=== PATIENT | male | born 1940 | race Caucasian/White ===

== ENCOUNTER 2016-12-25 07:28 | Day surgery (SDC) | payer MEDICARE, OTHER ==
[~2016-12-25 07:28] MED LIST: Lactated Ringers 1,000 ML IV SCH; Lidocaine 1%/Sod Bicarbonate in NS 8.4% 1 ML Syringe PRN; Propofol 200 MG/20 ML SDV ONE; Sodium Chloride 0.9% 10 ML Syringe FLUSH PRN
--- NOTE | 2016-12-25 07:55 | PCM.PREANE ---
Preanesthetic Assessment - Anesthesia/Transfusion/Family Hx Anesthesia History: Prior Anesthesia Without Reaction Family History of Anesthesia Reaction: No - Review of Systems General: No Symptoms Pulmonary: No Symptoms Cardiovascular: No Symptoms Gastrointestinal: No symptoms Neurological: No Symptoms Other: Reports: None - Physical Assessment NPO Status Date: 12/24/16 NPO Status Time: 20:00 Pulse: 55 O2 Sat by Pulse Oximetry: 96 Respiratory Rate: 16 Blood Pressure: 144/55 Temperature: 96.4 C ASA Class: 3 Mental Status: Alert & Oriented x3 Airway Class: Mallampati = 1 Dentition: Reports: Normal Dentition, Missing Tooth/Teeth ROM/Head Extension: Full Lungs: Clear to auscultation, Normal respiratory effort Cardiovascular: Murmurs - Allergies Allergies/Adverse Reactions: Allergies Allergy/AdvReac Type Severity Reaction Status Date / Time No Known Allergies Allergy Verified 12/24/16 15:51 - Acknowledgements Anesthesia Type Planned: MAC Pt an Appropriate Candidate for the Planned Anesthesia: Yes Alternatives and Risks of Anesthesia Discussed w Pt/Guardian: Yes Pt/Guardian Understands and Agrees with Anesthesia Plan: Yes PreAnesthesia Questionnaire HEENT History: Reports: Allergic Rhinitis, Impaired Vision, Other (See Below) Other HEENT History: reading glasses Cardiovascular History: Reports: Heart Murmur, Other (See Below) Other Cardiovascular History: cardiac arrythmia Respiratory History: Reports: COPD, Other (See Below) Other Respiratory History: lung nodules, acute URI, thick sputum Gastrointestinal History: Reports: Chronic Diarrhea, Diverticulosis Genitourinary History: Reports: BPH 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 Musculoskeletal History: Reports: Other (See Below) Other Musculoskeletal History: R knee pain, great toe pain Neurological History: Reports: Vertigo, Other (See Below) Other Neuro History: benign paroxysmal postitional vertigo Psychiatric History: Reports: None Endocrine/Metabolic History: Reports: None Hematologic History: Reports: Other (See Below) Other Hematologic History: hypocalcemia Immunologic History: Reports: None Oncologic (Cancer) History: Reports: None Dermatologic History: Reports: Other (See Below) Other Dermatologic History: prurigo nodularis, skin disorder - Past Surgical History Head Surgeries/Procedures: Reports: None HEENT Surgical History: Reports: Tonsillectomy Cardiovascular Surgical History: Reports: None Respiratory Surgical History: Reports: None GI Surgical History: Reports: Colonoscopy Female Surgical History: Reports: None Male Surgical History: Reports: None, Vasectomy Endocrine Surgical History: Reports: None Neurological Surgical History: Reports: None Musculoskeletal Surgical History: Reports: None Oncologic Surgical History: Reports: None Dermatological Surgical History: Reports: None - Past Imaging History Past Imaging History: Reports: Xray (CXR/CT scan-stable) - SUBSTANCE USE Smoking Status *Q: Former Smoker Number of Drinks Per Day: 3 Recreational Drug Use History: No - HOME MEDS Home Medications: Home Meds Aspirin 81 mg PO DAILY 12/24/16 [History] Multivitamin [Men's Multi-Vitamin] 1 tab PO DAILY 12/24/16 [History] Tiotropium [Spiriva Handihaler] 1 puff INH DAILY 12/24/16 [History] Triamcinolone Acetonide [Triamcinolone Acetonide 0.1% Crm] 1 dose TOP ASDIRECTED PRN 12/24/16 [History] - CURRENT (IN HOUSE) MEDS Current Meds: Current Medications Lactated Ringer's (Ringers, Lactated) 1,000 mls @ 125 mls/hr IV ASDIRECTED LES Stop: 12/25/16 23:00 Lidocaine/Sodium Bicarbonate (Buffered Lidocaine 1% In Ns 8.4%) 0.25 ml .XX ONETIME PRN PRN Reason: Prior to IV Start Stop: 12/25/16 18:00 Sodium Chloride (Saline Flush) 10 ml FLUSH ASDIRECTED PRN PRN Reason: Keep Vein Open Stop: 12/25/16 18:00 Discontinued Medications Propofol (Diprivan 20 Ml) Confirm Administered Dose 200 mg .ROUTE .STK-MED ONE Stop: 12/25/16 07:28
--- NOTE | 2016-12-25 09:04 | PCM.OPNOTE ---
- General Post-Op/Procedure Note Date of Surgery/Procedure: 12/25/16 Operative Procedure(s): Colonoscopy with rectal polypectomy using cold forceps Findings: 1. Pancolonic diverticulosis of the right colon transverse descending and sigmoid colons moderate to large in diameter 2. Diminutive rectal polyp less than 5 mm in size 3. Poor bowel prep Pre Op Diagnosis: Screening colonoscopy Post-Op Diagnosis: 1. Pancolonic diverticulosis. 2. Diminutive rectal polyp Anesthesia Technique: MAC, Moderate sedation Primary Surgeon: Antolin Baig Pathology: Rectal polyp EBL in mLs: 0 Complications: None Condition: Good Free Text/Narrative:: After adequate IV sedation and analgesia was obtained with monitoring the patient was placed on his left side. Perianal inspection and digital rectal examination were performed and were unremarkable. A lubricated colonoscope was inserted into the rectum and advanced to the cecum without difficulty. The bowel preparation was poor. The cecum, right colon, transverse and descending colons all contained moderate to large sized diverticuli. Some contained fecaliths. The sigmoid had the largest diverticuli with some containing fecaliths as well. There were no obvious mass lesion seen but limited by the poor bowel preparation. The musculature in the sigmoid was hypertrophied. Within the rectum there was a diminutive polyp about 5 mm in diameter which was removed with cold forceps. The specimen was retrieved and the area was hemostatic. Air was removed as I finished the procedure which he tolerated well. Motion Picture Equipment Supervisor photographs taken for the patient for the record.
--- NOTE | 2016-12-25 09:06 | PCM48HPAN ---
Post Anesthesia Note - EVALUATION WITHIN 48HRS OF ANESTHETIC Vital Signs in Normal Range: Yes Patient Participated in Evaluation: Yes Respiratory Function Stable: Yes Airway Patent: Yes Cardiovascular Function Stable: Yes Hydration Status Stable: Yes Pain Control Satisfactory: Yes Nausea and Vomiting Control Satisfactory: Yes Mental Status Recovered: Yes
[2016-12-25 09:08] VITALS: BP 140/69
== END 2016-12-25 09:34 | disposition home or self-care (01) ==
LOC: JD.SDS 07:28
PROVIDERS: ATTEND Surgery
PROC: 0DBP8ZX Excision of Rectum, Via Natural or Artificial Opening Endoscopic, Diagnostic (ICD-10-PCS; principal; 2016-12-25)
DX: Z12.11 Encounter for screening for malignant neoplasm of colon (principal); K62.1 Rectal polyp; K57.30 Diverticulosis of large intestine without perforation or abscess without bleeding; K59.39 Other megacolon; N40.0 Benign prostatic hyperplasia without lower urinary tract symptoms; J44.9 Chronic obstructive pulmonary disease, unspecified; E83.51 Hypocalcemia; L28.1 Prurigo nodularis; Z79.82 Long term (current) use of aspirin; Z79.899 Other long term (current) drug therapy; Z86.79 Personal history of other diseases of the circulatory system; Z87.01 Personal history of pneumonia (recurrent); Z98.52 Vasectomy status; Z90.49 Acquired absence of other specified parts of digestive tract; Z87.891 Personal history of nicotine dependence
CPT/HCPCS: 45380; 88305; J7120; 00810; J2704

== ENCOUNTER 2018-12-15 17:54 | Emergency (ER) | payer MEDICARE, OTHER ==
[2018-12-15 18:03] VITALS: BP 188/80
--- NOTE | 2018-12-15 18:31 | EDM.PDOC ---
ED HPI GENERAL MEDICAL PROBLEM - General Chief Complaint: ENT Problem Stated Complaint: FB IN EYE Time Seen by Provider: 12/15/18 18:10 Source of Information: Reports: Patient History Limitations: Reports: No Limitations - History of Present Illness INITIAL COMMENTS - FREE TEXT/NARRATIVE: 78-year-old male presents to the ED after having been identified foreign body in his right cornea partially removed at the [facility]. Denise Davis recognized that there was still residual foreign body/rust ring on the cornea. For this reason he was sent to the ED for further evaluation and treatment. He has been started on both ketorolac eyedrops and Cipro up thalamic drops with the initial drops placed prior to coming to the ED. Onset: Today Onset Date: 12/15/18 (He was grinding metal this morning even with a protective eyewear in place.) Duration: Hour(s): Location: Reports: Face (Right foreign body sensation in his eye.) Quality: Reports: Ache, Burning, Other Severity: Moderate (Excessive tearing) Improves with: Reports: Medication ( topical proparacaine removed the pain completely) Worsens with: Reports: None Context: Reports: Other (Grinding metal this morning). 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: Other (see below) (He has had a dose of Cipro ophthalmic drops and ketorolac ophthalmic drops placed in his eye.) - Related Data Allergies Allergy/AdvReac Type Severity Reaction Status Date / Time No Known Allergies Allergy Verified 12/15/18 18:03 Home Meds: Home Meds Aspirin 81 mg PO DAILY 12/24/16 [History] Multivitamin [Men's Multi-Vitamin] 1 tab PO DAILY 12/24/16 [History] Tiotropium [Spiriva Handihaler] 1 puff INH DAILY 12/24/16 [History] Triamcinolone Acetonide [Triamcinolone Acetonide 0.1% Crm] 1 dose TOP ASDIRECTED PRN 12/24/16 [History] Past Medical History HEENT History: Reports: Allergic Rhinitis, Impaired Vision, Other (See Below) Other HEENT History: reading glasses Cardiovascular History: Reports: Heart Murmur, Hypertension, Other (See Below) Other Cardiovascular History: cardiac arrythmia Respiratory History: Reports: COPD, Other (See Below) Other Respiratory History: lung nodules, acute URI, thick sputum Gastrointestinal History: Reports: Chronic Diarrhea, Diverticulosis Genitourinary History: Reports: BPH 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 Musculoskeletal History: Reports: Other (See Below) Other Musculoskeletal History: R knee pain, great toe pain Neurological History: Reports: Vertigo, Other (See Below) Other Neuro History: benign paroxysmal postitional vertigo Psychiatric History: Reports: None Endocrine/Metabolic History: Reports: None Hematologic History: Reports: Other (See Below) Other Hematologic History: hypocalcemia Immunologic History: Reports: None Oncologic (Cancer) History: Reports: None Dermatologic History: Reports: Other (See Below) Other Dermatologic History: prurigo nodularis, skin disorder - Infectious Disease History Infectious Disease History: Reports: None - Past Surgical History Head Surgeries/Procedures: Reports: None HEENT Surgical History: Reports: Detached Retina, Tonsillectomy Cardiovascular Surgical History: Reports: None Respiratory Surgical History: Reports: None GI Surgical History: Reports: Colonoscopy Male Surgical History: Reports: Vasectomy Endocrine Surgical History: Reports: None Neurological Surgical History: Reports: None Musculoskeletal Surgical History: Reports: None Oncologic Surgical History: Reports: None Dermatological Surgical History: Reports: None - Past Imaging History Past Imaging History: Reports: Xray (CXR/CT scan-stable) Social & Family History - Tobacco Use Smoking Status *Q: Never Smoker - Caffeine Use Caffeine Use: Reports: None - Recreational Drug Use Recreational Drug Use: No - Living Situation & Occupation Living situation: Reports: Occupation: Retired ED ROS GENERAL - Review of Systems Review Of Systems: See Below Constitutional: Reports: No Symptoms HEENT: Reports: Eye Pain (Foreign body sensation right eye), Glasses ( is like you're slipping up underneath his eyelid) Respiratory: Reports: No Symptoms, Shortness of Breath, Wheezing (Periodically. Has known COPD.), Cough Cardiovascular: Reports: No Symptoms (Usually nonproductive) Endocrine: Reports: No Symptoms GI/Abdominal: Reports: No Symptoms : Reports: Frequency, Other (Nocturia 2. Known BPH) Musculoskeletal: Reports: Joint Pain (Knees hips neck and low back at times orders at times as well.) Skin: Reports: Other (Has chronic eczema) Neurological: Reports: No Symptoms Psychiatric: Reports: No Symptoms Hematologic/Lymphatic: Reports: No Symptoms Immunologic: Reports: No Symptoms ED EXAM GENERAL W FULL EYE - Physical Exam Exam: See Below Exam Limited By: No Limitations General Appearance: Alert, WD/WN, No Apparent Distress Eye Exam: Right Eye: Foreign Body (Was straining and minimal black debris noted on the right cornea at the 11 o'clock position 3 mm from the limbus) Eyelids: Right: Normal Appearance, Lid Everted for Exam Conjunctiva & Sclera: Bilateral: Normal Appearance Cornea Exam: Right: Foreign Body (Minimal foreign body and rust ring appreciated 11 o'clock position 3 mm from the limbus. This was only identified on slit lamp exam) Extraocular Movements: Bilateral: Intact Pupils: Normal Accommodation Pupillary Size: Right: 5 mm Pupillary Reaction: Bilateral: Brisk Anterior Chamber: Right: Normal Appearance ED EYE w/ Add Procedure - Eye Procedure Alcaine Drops Administered: Yes Eye FB Removal: Other (Required tutu to remove rust ring under slit lamp exam.) Antibiotic Oinment/Drps Admin: Right Eye (2 drops of ciprofloxacin. Also 2 drops of ketorolac and I was double patched closed until noon tomorrow) Course - Vital Signs Last Recorded V/S: Last Vital Signs Temp 36.8 C 12/15/18 18:00 Pulse 56 L 12/15/18 18:00 Resp 16 12/15/18 18:00 BP 188/80 H 12/15/18 18:00 Pulse Ox 97 12/15/18 18:00 - Radiology Interpretation Free Text/Narrative:: 78-year-old male presents to the ED after having a foreign body partially removed from his right cornea at the [facility]. The providerDenise davis recognized that there was still foreign material and frustrating in the cornea and therefore referred him to the ER. I could not visualize this with the naked eye or with the magnifying visors. It was only identified on slit lamp exam. There was a small rust ring 1 mm diameter at the 11 o'clock position 3 mm from the limbus. One tiny lm of metallic material identified as well. Therefore under topical anesthetic proparacaine I was able to bur 90% of the rust ring all the way. Further foreign body identified. Treatment will be ketorolac drops 2 drops every 6 hours needed for pain relief. He was advised it'll take about 24 hours for the cornea to heal. He will use Cipro ophthalmic drops 2 drops every 8 hours for the next 2 and half days to prevent secondary infection. Advise to have the eye double patched closed and take off only to put the drops in until noon tomorrow. He will likely need sunglasses the rest of the day as the eye will be very sensitive to the sun. He should be reviewed back to normal the following morning. If not he is to follow-up with principal network architect Departure - Departure Time of Disposition: 18:26 Disposition: Home, Self-Care 01 Condition: Fair Clinical Impression: Corneal foreign body with residual material Qualifiers: Encounter type: initial encounter Laterality: right Qualified Code(s): T15.01XA - Foreign body in cornea, right eye, initial encounter - Discharge Information *PRESCRIPTION DRUG MONITORING PROGRAM REVIEWED*: Not Applicable *COPY OF PRESCRIPTION DRUG MONITORING REPORT IN PATIENT BERNADETTE: Not Applicable Instructions: Corneal Abrasion, [id number] Referrals: Alia Davis PA-C [Primary Care Provider] - Additional Instructions: Evaluation the emergency room today in regards to a metallic foreign body that was appreciated embedded in your cornea at the [facility] by Denise Davis. She was able to review with me move most of the metallic foreign body however there was a residual rust ring and she felt probably further metallic foreign bodies present there as well. Antibiotic drops Cipro have been started as well as ketorolac drops placed in the eye as per our discussion on the phone. In the ED identified that there was a residual rust ring at the 11 o'clock position approximately 3 mm from the limbus of your cornea. This area under topical anesthesia was "burred " only. There was still a tiny speck of rust ring when we were finished up but this will slough off over the next day or 2. Treatment is ketorolac drops 2 drops to the right eye every 6 hours as needed for relief of pain. He may also take Motrin 600 mg by mouth if needed. Antibiotic drop is Cipro 2 drops every 8 hours or 3 times daily for the next 2-1/2 days to prevent secondary infection. Double eye patch on until tomorrow at noon. By then the corneal abrasion will be 90% healed. He will probably need sunglasses as the I will be quite sensitive to sunlight until the following day. Follow-up with principal network architect if not completely better in 20 -36 hours time
== END 2018-12-15 18:58 | disposition home or self-care (01) ==
LOC: JD.ED 17:54
DX: T15.01XA Foreign body in cornea, right eye, initial encounter (principal); J44.9 Chronic obstructive pulmonary disease, unspecified; X58.XXXA Exposure to other specified factors, initial encounter; Z79.82 Long term (current) use of aspirin; Z79.899 Other long term (current) drug therapy
CPT/HCPCS: 65222; 99283